=== PATIENT | female | born 1965 | race Caucasian/White ===

== ENCOUNTER 2019-02-22 11:37 | Outpatient (CLI) | payer BC ==
--- NOTE | 2019-02-22 12:02 | RAD ---
XR Chest Pa Lat STANDARD HISTORY: Cough COMPARISON: 01/07/2016 FINDINGS: The heart size is normal. The lungs are well expanded without focal areas of consolidation, pneumothorax or pleural effusions. No acute osseous abnormalities are seen. IMPRESSION: No radiographic evidence of acute cardiopulmonary process.
== END 2019-02-22 11:38 | disposition home or self-care (01) ==
LOC: BICRAD 11:37
PROVIDERS: ATTEND Specialist
DX: R05 Cough (principal)
CPT/HCPCS: 71046

== ENCOUNTER 2019-03-31 12:59 | Outpatient (CLI) | payer BC ==
--- NOTE | 2019-03-31 13:16 | RAD ---
XR Chest Pa Lat STANDARD History: Cough Comparison: Chest radiograph February 2019 Findings: Lungs are clear. No pneumothorax or effusion. Cardiac silhouette and mediastinal contours a re within normal limits. Mild scarring both lung apices. Impression: No acute intrathoracic abnormality.
== END 2019-03-31 13:00 | disposition home or self-care (01) ==
LOC: BICRAD 12:59
PROVIDERS: ATTEND Specialist
DX: R05 Cough (principal)
CPT/HCPCS: 71046

== ENCOUNTER 2019-04-10 13:03 | Outpatient (CLI) | payer BC ==
--- NOTE | 2019-04-10 14:28 | CT ---
EXAM: CT of the chest without contrast HISTORY: Cough for 3 weeks COMPARISON: None TECHNIQUE: Multiple contiguous axial images were obtained in a CT the chest without contrast. Coronal and sagittal reformats were performed. FINDINGS: HEART: Normal in size without focal cardiac abnormality MEDIASTINUM: No hilar or mediastinal lymphadenopathy. Evaluation of the mediastinum is limited withou t IV contrast. LUNGS: No focal infiltrates, nodules, or masses. PLEURAL SPACE: No pneumothorax or pleural effusion. CHEST WALL SOFT TISSUES: Unremarkable OSSEOUS STRUCTURES: Degenerative changes are seen in the spine. VISUALIZED SUBDIAPHRAGMATIC STRUCTURES: Unremarkable. The patient is status post cholecystectomy. IMPRESSION: No evidence of acute intrathoracic abnormality.
== END 2019-04-10 13:04 | disposition home or self-care (01) ==
LOC: SCSCT 13:03
PROVIDERS: ATTEND Specialist
DX: R93.89 Abnormal findings on diagnostic imaging of other specified body structures (principal)
CPT/HCPCS: 71250

== ENCOUNTER 2020-05-14 12:31 | Outpatient (CLI) | payer BC ==
--- NOTE | 2020-05-14 13:04 | RAD ---
EXAM: Two views chest PROVIDED CLINICAL HISTORY: Dyspnea COMPARISON: 03/31/2019 FINDINGS: Cardiac and mediastinal silhouette appears within normal limits. Lungs appear free of significant opa city. No pleural fluid or pneumothorax apparent. IMPRESSION: No evidence for an acute cardiopulmonary process.
== END 2020-05-14 12:32 | disposition home or self-care (01) ==
LOC: BICRAD 12:31
PROVIDERS: ATTEND Internal Medicine Pulmonary Disease
DX: R06.00 Dyspnea, unspecified (principal)
CPT/HCPCS: 71046